=== PATIENT | male | born 1975 | race Hispanic/Latino ===

== ENCOUNTER 2022-01-18 22:35 | Emergency (ER) | payer BC, OTHER ==
[2022-01-18] MEDS ORDERED: Cyclobenzaprine 10 MG TAB ONE (23:00)
[2022-01-18] MEDS ORDERED: Ibuprofen 800 MG TAB ONE (23:00)
== END 2022-01-18 23:05 | disposition home or self-care (01) ==
LOC: BURERS 22:35
DX: M62.838 Other muscle spasm (principal); I10 Essential (primary) hypertension; Z79.899 Other long term (current) drug therapy

== ENCOUNTER 2025-04-20 23:09 | Emergency (ER) | payer BC ==
[2025-04-20] MEDS ORDERED: Ondansetron PF 4 MG/2 ML Vial ONE (23:34)
[2025-04-21 00:50] LABS: Glucose, Urine (Dipstick) Negative (Negative); Leukocyte Negative (Negative); Protein, Urine (Dipstick) Negative (Neg-Trace); Specific Gravity, Urine 1.020 (1.005-1.030)
[2025-04-21 01:04] LABS: Bacteria/HPF Rare-Few HPF (None Seen); CAUTI Indications for Culture Pelvic or flank pain; WBC/HPF 0-3 HPF (0-3)
[2025-04-21 01:05] LABS: Urine Culture Reflex No No
== END 2025-04-21 01:17 | disposition home or self-care (01) ==
LOC: BURERS 23:09
DX: N13.2 Hydronephrosis with renal and ureteral calculous obstruction (principal); I10 Essential (primary) hypertension; I25.2 Old myocardial infarction
CPT/HCPCS: 74176; 81001; 96374; 96375; J2270; J2405